=== PATIENT | female | born 1950 | race Caucasian/White ===

== ENCOUNTER 2017-12-04 18:17 | Emergency (ER) | payer OTHER ==
[2017-12-04 18:26] VITALS: BP 139/84; PULSE 84; TEMP 98.3; BMI 23.0
--- NOTE | 2017-12-04 19:40 | PDOC ---
History of Present Illness - General History Source: Patient Exam Limitations: No Limitations - History of Present Illness Initial Comments: 12/04/17 19:41 The patient is a 67 year old female with history of asthma, thyroid disorder, who presnts to the ED complaining of approximately 10 days of chest congestion with nonproductive cough. Over the past few days, her coughing had become significantly worse. She now complains of sinus congestion, nasal discharge, and bilateral eye discharge. She states this feels similar to past sinus congestions. Her cough is improved today. She denies fever or chills. She denies ear pain, ear fullness, or sore throat. She denies chest pain or peripheral edema. <Yulia Gutierrez - Last Filed: 12/04/17 19:49> <Lazara Rodriguez - Last Filed: 12/05/17 00:56> - General Chief Complaint: Respiratory Stated Complaint: COUGH & SINUS PAIN Time Seen by Provider: 12/04/17 19:15 Past History <Yulia Gutierrez - Last Filed: 12/04/17 19:49> - Past Medical History Asthma: Yes COPD: No Thyroid Disease: Yes - Suicide/Smoking/Psychosocial Hx Smoking History: Never smoked Hx Alcohol Use: No Drug/Substance Use Hx: No Substance Use Type: None <Lazara Rodriguez - Last Filed: 12/05/17 00:56> - Past Medical History Allergies/Adverse Reactions: Allergies Allergy/AdvReac Type Severity Reaction Status Date / Time Penicillins Allergy Mild Rash Verified 12/04/17 17:57 Home Medications: Ambulatory Orders Azithromycin [Zithromax 250mg Tablets -] 250 mg PO UTDICT #6 tab 12/04/17 Budesonide [Pulmicort Flexhaler] 2 inh IH DAILY 12/04/17 Cholecalciferol (Vitamin D3) [Vitamin D] 2,000 unit PO DAILY 12/04/17 Ciprofloxacin 0.3% Eye Drops [Ciloxan 0.3% Eye Drops --] 1 drop OU Q4HWA #1 bottle 12/04/17 Dexlansoprazole [Dexilant] 60 mg PO DAILY 12/04/17 Levothyroxine [Synthroid -] 100 mcg PO DAILY 12/04/17 Montelukast Sodium [Singulair] 10 mg PO HS 05/06/18 Multivit-Min/Iron/Folic/Lutein [Centrum Silver Women Tablet] 1 each PO DAILY 01/16 Ranitidine [Zantac -] 150 mg PO DAILY 12/04/17 Review of Systems - Review of Systems Able to Perform ROS?: Yes Comments:: 12/04/17 19:43 My review of systems is as per HPI and otherwise negative. <Yulia Gutierrez - Last Filed: 12/04/17 19:49> *Physical Exam - Vital Signs Last Vital Signs Temp Pulse Resp BP Pulse Ox 98.3 F 84 18 139/84 98 12/04/17 18:18 12/04/17 18:18 12/04/17 18:18 12/04/17 18:18 12/04/17 18:18 - Physical Exam Comments: 12/04/17 19:44 GENERAL: Awake, alert, and fully oriented, in no acute distress HEAD: No signs of trauma. Bilateral frontal tenderness to palpation. EYES: PERRLA, EOMI, sclera anicteric, conjunctiva clear ENT: Auricles normal inspection, hearing grossly normal, nares patent, oropharynx clear without exudates. Moist mucosa NECK: Normal ROM, supple, no lymphadenopathy, JVD, or masses LUNGS: Breath sounds equal, clear to auscultation bilaterally. No wheezes, and no crackles HEART: Regular rate and rhythm, normal S1 and S2, no murmurs, rubs or gallops ABDOMEN: Soft, nontender, normoactive bowel sounds. No guarding, no rebound. No masses EXTREMITIES: Normal range of motion, no edema. No clubbing or cyanosis. No cords, erythema, or tenderness NEUROLOGICAL: Cranial nerves II through XII grossly intact. Normal speech, normal gait SKIN: Warm, Dry, normal turgor, no rashes or lesions noted. <Yulia Gutierrez - Last Filed: 12/04/17 19:49> - Vital Signs Last Vital Signs Temp Pulse Resp BP Pulse Ox 98.3 F 84 18 139/84 98 12/04/17 18:18 12/04/17 18:18 12/04/17 18:18 12/04/17 18:18 12/04/17 18:18 <Lazara Rodriguez - Last Filed: 12/05/17 00:56> Progress Note - Progress Note Progress Note: Documentation has been prepared under my direction and personally reviewed by me in its entirety. I attest that this documented accurately reflects all work, treatment, procedures and medical decision making performed by me. <Lazara Rodriguez - Last Filed: 12/05/17 00:56> Medical Decision Making - Medical Decision Making As noted above, this 67-year-old woman presents with several day history of viral syndrome (upper respiratory symptoms along with bronchitis). In the last 24 hours, she has developed facial pain and tenderness. Although she has no measured fever, she has had purulent nasal discharge. She has multiple previous episodes of acute sinusitis, which she reports it is usually responsive to azithromycin course. She also describes bilateral oral purulent discharge from her eyes and erythematous conjunctiva. Exam as noted. Azithromycin (Z-Rafael) will be prescribed for her acute sinusitis. Ciloxan ophthalmic solution will be prescribed if her conjunctivitis continues to be purulent. She should follow-up with her general doctor within the next few days. She should return to the emergency room if she develops severe symptoms. <Lazara Rodirguez - Last Filed: 12/05/17 00:56> *DC/Admit/Observation/Transfer - Attestations Scribe Attestion: 12/04/17 19:50 Documentation prepared by Yulia Gutierrez, acting as medical record assistant for Lazara Rodriguez MD. <Yulia Gutierrez - Last Filed: 12/04/17 19:49> <Lazara Rodriguez - Last Filed: 12/05/17 00:56> Diagnosis at time of Disposition: Sinusitis - Discharge Dispostion Disposition: HOME Condition at time of disposition: Good - Prescriptions Prescriptions: Azithromycin [Zithromax 250mg Tablets -] 250 mg PO UTDICT #6 tab Ciprofloxacin 0.3% Eye Drops [Ciloxan 0.3% Eye Drops --] 1 drop OU Q4HWA #1 bottle - Referrals Referrals: Ryder Bardales MD [Primary Care Provider] - - Patient Instructions Additional Instructions: Please take Z-Rafael as prescribed. If your eyes do not improve, use eye drops as prescribed. Follow up with your primary care doctor. Please return to the ED if your symptoms significantly worsen. - Post Discharge Activity
== END 2017-12-04 20:04 | disposition home or self-care (01) ==
LOC: FER 18:17
DX: J32.9 Chronic sinusitis, unspecified (principal); J45.909 Unspecified asthma, uncomplicated; Z88.0 Allergy status to penicillin
CPT/HCPCS: 99281-25

== ENCOUNTER 2022-05-10 18:41 | Emergency (ER) | payer OTHER, MEDICARE ==
[2022-05-10 18:52] VITALS: BP 174/92; PULSE 82; RESP 20; TEMP 98.1; BMI 23.6
[2022-05-10 20:11] LABS: HEMATOCRIT 38.6 % (32.4-45.2); HEMOGLOBIN 13.6 G/dL (10.7-15.3); MCH 32.8 pg (25.7-33.7); MCHC 35.3 g/dl (32.0-36.0); MEAN CELL VOLUME 92.7 fl (80-96); MEAN PLT VOLUME 8.7 fl (7.5-11.1); PLATELET COUNT 252.8 10^3/uL (134-434); RBC 4.16 10^6/uL (3.60-5.2); RDW 14.2 % (11.6-15.6); WHITE BLOOD COUNT 7.9 10^3/uL (4.0-10.8)
[2022-05-10 20:24] LABS: ALBUMIN 4.5 g/dl (3.4-5.0); ALK PHOS 43 U/L (45-117); ANION GAP 7 MMOL/L (8-16); BILIRUBIN,TOTAL 0.7 mg/dl (0.2-1); CHLORIDE 98 mmol/L (98-107); CO2 28 mmol/L (21-32); CREATININE 0.7 mg/dl (0.55-1.3); GLUCOSE,RANDOM 98 mg/dl (74-106); SGOT/AST 30 U/L (15-37); SGPT/ALT 29 U/L (13-61); SODIUM 133 mmol/L (136-145); TOT PROT 7.2 g/dl (6.4-8.2)
[2022-05-10 20:48] LABS: PLATELET ESTIMATE ADEQUATE
== END 2022-05-10 21:02 | disposition home or self-care (01) ==
LOC: FER 18:41
DX: R07.9 Chest pain, unspecified (principal)
CPT/HCPCS: 36415; 80053; 84484; 85027; 93005; 99284-25